=== PATIENT | male | born 1990 | race Caucasian/White ===

== ENCOUNTER 2018-11-20 04:19 | Emergency (ER) | payer OTHER ==
[~2018-11-20] VITALS: Ht 157.5 cm; Wt 72.6 kg
[2018-11-20] MEDS ORDERED: CEPH500 PO (04:36)
[2018-11-20] MEDS ORDERED: Bactrim Ds Tab1 EACH PO (04:36)
== END 2018-11-20 05:13 | disposition home or self-care (01) ==
LOC: ER 04:19
DX: L03.012 Cellulitis of left finger (principal)
CPT/HCPCS: 99283